=== PATIENT | male | born 1990 | race Caucasian/White ===

== ENCOUNTER 2017-04-15 11:36 | Emergency (ER) | payer SELFPAY ==
[2017-04-15 11:48] VITALS: TEMP 97.4
--- NOTE | 2017-04-15 12:00 | ED PDOC ---
Arrival/HPI - General Chief Complaint: Trauma Time Seen by Provider: 04/15/17 11:42 Historian: Patient - History of Present Illness Narrative History of Present Illness (Text): 04/15/17 11:59 A 26 year old male, whose denies any past medical history, was brought into the emergency department by EMS for evaluation. Patient complains of a mild headache , nausea and right knee pain after possible fall. He reports living with his aunt and locking himself out of the apartment located on the first floor. He states his aunt was at work so he attempted to climb in through a window. Patient does not recall falling but states he remembers waking up on the ground. Patient reports walking to a park near by and calling the paramedics. As per EMS, patient was able to recall the whole event upon their arrival at that time. Patient denies any fever, chills, vomiting, abdominal pain, chest pain, shortness of breath, dizziness, visual changes or any other complaints. Time/Duration: Prior to Arrival Symptom Course: Unchanged Quality: Other Context: Home Past Medical History - Provider Review Nursing Documentation Reviewed: Yes - Infectious Disease Hx of Infectious Diseases: None - Psychiatric Hx Substance Use: No Family/Social History - Physician Review Nursing Documentation Reviewed: Yes Family/Social History: No Known Family HX Smoking Status: Unknown If Ever Smoked Hx Alcohol Use: No Hx Substance Use: No Allergies/Home Meds Allergies/Adverse Reactions: Allergies No Known Allergies Allergy (Verified 04/15/17 11:54) Review of Systems - Physician Review All systems were reviewed & negative as marked: Yes - Review of Systems Constitutional: absent: Fevers, Night Sweats Eyes: absent: Vision Changes Respiratory: absent: SOB Cardiovascular: absent: Chest Pain Gastrointestinal: Nausea. absent: Abdominal Pain, Vomiting Musculoskeletal: Other (right knee pain) Neurological: Headache. absent: Dizziness Physical Exam Vital Signs Reviewed: Yes Vital Signs Temp Pulse Resp BP Pulse Ox 04/15/17 11:47 97.4 F L 80 16 113/73 100 Temperature: Afebrile Blood Pressure: Normal Pulse: Regular Respiratory Rate: Normal Appearance: Positive for: Well-Appearing, Non-Toxic, Comfortable Pain Distress: None Mental Status: Positive for: Alert and Oriented X 3 - Systems Exam Head: Present: Atraumatic, Normocephalic Pupils: Present: PERRL Extroacular Muscles: Present: EOMI Conjunctiva: Present: Normal Ears: Present: Normal, NORMAL TM Mouth: Present: Moist Mucous Membranes Pharnyx: Present: Normal. No: ERYTHEMA, EXUDATE Neck: Present: Normal Range of Motion. No: MIDLINE TENDERNESS, Paraspinal Tenderness Respiratory/Chest: Present: Clear to Auscultation, Good Air Exchange. No: Respiratory Distress, Accessory Muscle Use Cardiovascular: Present: Regular Rate and Rhythm, Normal S1, S2. No: Murmurs Abdomen: Present: Normal Bowel Sounds. No: Tenderness, Distention, Peritoneal Signs Back: Present: Normal Inspection. No: Midline Tenderness, Paraspinal Tenderness , Pain with Leg Raise Upper Extremity: Present: Normal Inspection. No: Cyanosis, Edema Lower Extremity: Present: Normal Inspection, NORMAL PULSES, Normal ROM, Neurovascularly Intact. No: Edema, CALF TENDERNESS, Tenderness, Swelling, Erythema, Deformity, Temperature Abnormalties Neurological: Present: GCS=15, CN II-XII Intact, Speech Normal, Motor Func Grossly Intact Skin: Present: Warm, Dry, Normal Color. No: Rashes Psychiatric: Present: Alert, Oriented x 3, Normal Insight, Normal Concentration Medical Decision Making ED Course and Treatment: 04/15/17 11:59 Impression: A 26 year old male with a mild headache, nausea and right knee pain after possible fall. Physical exam unremarkable. Plan: -- Head CT -- Right knee xray -- Motrin and Zofran -- Reassess and disposition Progress Notes: Report Date : 04/15/2017 12:42:46 PROCEDURE: Right Knee Radiographs. Dictator : Tal Mari MD IMPRESSION: No acute fracture. Report Date : 04/15/2017 12:34:26 PROCEDURE: CT HEAD WITHOUT CONTRAST. Dictator : Tal Mari MD IMPRESSION: Normal CT of the Head. No intracranial hemorrhage. 04/15/17 13:28 Imaging is negative. Normal neuro exam and patient is well-appearing. By patient's history, findings would be consistent with possible concussion. Ok for d/c with knee immobilizer and crutches and f/u ortho. Police did come and speak with patient; he is not in police custody - ok for d/c. - RAD Interpretation Radiology Orders: 04/15/17 11:59 Brain [HEAD W/O CONTRAST] [CT] Stat 04/15/17 12:00 KNEE W PATELLA RIGHT 3 VIEW [RAD] Stat - Medication Orders Current Medication Orders: Discontinued Medications Ibuprofen (Motrin Tab) 600 mg PO STAT STA Stop: 04/15/17 12:01 Last Admin: 04/15/17 12:38 Dose: 600 mg Ondansetron HCl (Zofran Odt) 4 mg PO STAT STA Stop: 04/15/17 12:01 Last Admin: 04/15/17 12:38 Dose: 4 mg - Scribe Statement The provider has reviewed the documentation as recorded by the Moreno Hairston Provider Scribe Attestation: All medical record entries made by the Scribe were at my direction and personally dictated by me. I have reviewed the chart and agree that the record accurately reflects my personal performance of the history, physical exam, medical decision making, and the department course for this patient. I have also personally directed, reviewed, and agree with the discharge instructions and disposition. Disposition/Present on Arrival - Present on Arrival Any Indicators Present on Arrival: No History of DVT/PE: No History of Uncontrolled Diabetes: No Urinary Catheter: No History of Decub. Ulcer: No History Surgical Site Infection Following: None - Disposition Have Diagnosis and Disposition been Completed?: Yes Diagnosis: Minor head injury, Knee pain Disposition: HOME/ ROUTINE Disposition Time: 13:30 Patient Plan: Discharge Patient Problems: Current Active Problems Problem Status Onset Knee pain Acute Minor head injury Acute Condition: GOOD Discharge Instructions (ExitCare): Concussion (ED), Post Concussion Syndrome ( ED) Additional Instructions: Motrin for pain. Knee immobilizer and crutches for ambulation. Follow up in the medical clinic and orthopedics. Return to the emergency department if any new concerning symptoms. Prescriptions: Ibuprofen [Motrin Tab] 1 tab PO Q8H PRN #20 tab PRN Reason: Pain, Moderate (4-7) Referrals: [facility] [place] [Outside] - Follow up with primary [facility] [place] [Outside] - Follow up with primary Forms: [employer] (Korean)
--- NOTE | 2017-04-15 12:36 | CT ---
PROCEDURE: CT HEAD WITHOUT CONTRAST. HISTORY: reported fall; headache, nausea, LOC COMPARISON: None available. TECHNIQUE: Axial computed tomography images were obtained through the head/brain without intravenous contrast. Radiation dose: Total exam DLP = 768.88 mGy-cm. This CT exam was performed using one or more of the following dose reduction techniques: Automated exposure control, adjustment of the mA and/or kV according to patient size, and/or use of iterative reconstruction technique. FINDINGS: HEMORRHAGE: No intracranial hemorrhage. BRAIN: No mass effect or edema. No atrophy or chronic microvascular ischemic changes. VENTRICLES: Unremarkable. No hydrocephalus. CALVARIUM: Unremarkable. PARANASAL SINUSES: Unremarkable as visualized. No significant inflammatory changes. MASTOID AIR CELLS: Unremarkable as visualized. No inflammatory changes. OTHER FINDINGS: None. IMPRESSION: Normal CT of the Head. No intracranial hemorrhage.
--- NOTE | 2017-04-15 12:44 | RAD ---
PROCEDURE: Right Knee Radiographs. HISTORY: R knee pain s/p fall COMPARISON: None. FINDINGS: BONES: No acute fracture. 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 JOINTS: Normal. No osteoarthritis. JOINT EFFUSION: None. OTHER FINDINGS: None. IMPRESSION: No acute fracture.
[2017-04-15 14:20] VITALS: BP 111/54; PULSE 63; RESP 18; O2SAT 97
== END 2017-04-15 14:05 | disposition home or self-care (01) ==
LOC: ED 11:36
DX: S09.90XA Unspecified injury of head, initial encounter (principal); W19.XXXA Unspecified fall, initial encounter; Y93.89 Activity, other specified; Y92.008 Other place in unspecified non-institutional (private) residence as the place of occurrence of the external cause; M25.561 Pain in right knee